=== PATIENT | female | born 1995 | race Caucasian/White ===

== ENCOUNTER 2017-05-11 14:17 | Emergency (ER) | payer OTHER ==
[~2017-05-11] VITALS: Ht 160 cm; Wt 71.7 kg
[2017-05-11 14:24] VITALS: Ht 160 cm; Wt 71.7 kg
[2017-05-11 15:07] LABS: BASOPHIL % 0.1 % (0-2); PLATELET COUNT 179 x10^3mcL (130-400); RED CELL DISTRIBUTION WIDTH 12.6 % (11.5-14.5)
[2017-05-11 15:21] LABS: CALCIUM 9.4 mg/dL (8.5-10.1); CARBON DIOXIDE 22.6 mmol/L (21-32); CHLORIDE SERUM 100 mmol/L (98-107); CREATININE SERUM 0.9 mg/dL (0.6-1.0); GFR1 > 60 mL/min; GLUCOSE SERUM 96 mg/dL (74-106); POTASSIUM SERUM 4.3 mmol/L (3.5-5.1); SODIUM SERUM 135 mmol/L (136-145)
[2017-05-11 15:27] LABS: ALBUMIN 3.6 g/dL (3.4-5.0); ALKALINE PHOSPHATASE 77 U/L (46-116); ALT/SGPT 21 U/L (14-59); AMYLASE 49 U/L (25-115); AST/SGOT 26 U/L (15-37); BILIRUBIN TOTAL 0.69 mg/dL (0.20-1.00); LIPASE 89 IU/L (73-393); TOTAL PROTEIN, SERUM 8.2 g/dL (6.4-8.2)
[2017-05-11 16:48] VITALS: BP 120/69
== END 2017-05-11 16:48 | disposition home or self-care (01) ==
LOC: ED 14:17
DX: A08.4 Viral intestinal infection, unspecified (principal); J45.909 Unspecified asthma, uncomplicated
CPT/HCPCS: 36415; Q0092